=== PATIENT | male | born 1950 | race Caucasian/White ===

== ENCOUNTER → 2018-11-19 | Outpatient (CLI) | payer BC ==
[2018-11-19 13:41] LABS: ABSOLUTE EOSINOPHILS 0.1 thou/uL (0.0-0.7); ABSOLUTE LYMPHOCYTES 0.9 thou/uL (0.8-5.3); ABSOLUTE MONOCYTES 0.3 thou/uL (0.0-1.2); ABSOLUTE NEUTROPHILS 3.1 thou/uL (1.6-8.1); BASOPHILS 0.7 %; EOSINOPHILS 1.9 %; HEMATOCRIT 52.1 % (42.0-52.0); HEMOGLOBIN 17.9 gm/dL (14.0-18.0); LYMPHOCYTES 19.3 %; MCH 32.3 pg (26.0-34.0); MCHC 34.3 g/dL (28.0-37.0); MCV 94.3 fL (80.0-100.0); MONOCYTES 7.5 %; MPV 7.5 fl. (7.2-11.1); NUCLEATED RBCS 0 /100WBC; PLATELET COUNT* 190 thou/uL (150-400); POLYS 70.6 %; RBC 5.53 mil/uL (4.50-6.00); RDW-CV 13.4 % (10.5-14.5); WBC 4.4 thou/uL (4.0-11.0)
[2018-11-19 13:45] VITALS: BP 137/78
[2018-11-19 14:20] VITALS: BP 131/66
--- NOTE | 2018-11-19 14:31 | NUR ---
ARRIVED AMBULATORY FROM LAB. MADE SELF COMFORTABLE IN RECLINER. AT CHAIRSIDE. PROCEDURE EXPLAINED. THERAPUTIC PHLEBOTOMY COMPLETED AND TOLERATED WELL. PT MONITIRED 30 MIN. DENEIS QUESTIONS OR NEEDS AT DISCHARGE.
== END ==
LOC: M.LAB 10:26
PROVIDERS: Urology
DX: D75.1 Secondary polycythemia (principal); E29.1 Testicular hypofunction